=== PATIENT | female | born 1955 | race Asian ===

== ENCOUNTER 2024-01-11 14:10 | Emergency (ER) | payer OTHER ==
[~2024-01-11] VITALS: Ht 157.5 cm; Wt 68.9 kg
[2024-01-11] MEDS ORDERED: ENALAPRILAT DIHYDRATE 2.5 MG/2 ML VIAL IV ONE (16:00)
[2024-01-11] MEDS ORDERED: ENALAPRILAT DIHYDRATE 1.25 MG/ML VIAL IV ONE (16:09)
[2024-01-11 16:22] LABS: HEMATOCRIT 41.4 % (36.0-45.00); HEMOGLOBIN 14.2 g/dL (12.0-15.00); MEAN CELL VOLUME 87.1 fL (80.00-100.00); MEAN CORPUSCULAR HEMOGLOBIN 29.8 pg (27.00-32.0); MEAN CORPUSCULAR HGB CONC 34.2 g/dl (32.0-36.0); PLATELET COUNT 298 K/uL (150-450); RED BLOOD COUNT 4.76 M/uL (4.00-6.00); RED CELL DISTRIBUTION WIDTH 14.1 % (11.5-14.5)
[2024-01-11 17:01] LABS: CALCIUM 9.8 mg/dL (8.5-10.1); CREATININE SERUM 0.62 mg/dL (0.55-1.02); GFR 95.16; POTASSIUM 4.6 mEq/L (3.5-5.1)
== END 2024-01-11 18:56 | disposition home or self-care (01) ==
LOC: ER 14:12
PROVIDERS: General Practice
DX: I10 Essential (primary) hypertension (principal); Z91.040 Latex allergy status

== ENCOUNTER 2024-01-25 10:14 | Outpatient (CLI) | payer OTHER | END 2024-01-25 10:21 | disposition home or self-care (01) | LOC: NUCLEAR 10:14 | PROVIDERS: ATTEND Internal Medicine Cardiovascular Disease | DX: I73.9 Peripheral vascular disease, unspecified (principal); I10 Essential (primary) hypertension ==